=== PATIENT | male | born 1945 | race Caucasian/White ===

== ENCOUNTER → 2016-10-20 | Outpatient (CLI) | payer MEDICARE, OTHER ==
[~2016-10-20] MED LIST: ALFU1TAB10 PO; ASPI81 PO; ENAL5TAB98 PO; GLUCTAB PO; SIMV20 PO; THIA100T PO
[2016-10-20 08:59] LABS: BLOOD GAS BASE EXCESS -3.2 mmol/L (-2-2); BLOOD GAS CARBOXYHEMOGLOBIN 3.7 % (0-4); BLOOD GAS HCO3 21 mmol/L (22-26); BLOOD GAS METHEMOGLOBIN 0.9 % (0-2); BLOOD GAS O2 HGB SATURATION 87 % (90-100); BLOOD GAS OXYGEN CONTENT 16.8 Vol % (12.0-20.0); BLOOD GAS PCO2 37 mmHg (38-42); BLOOD GAS PO2 64 mmHg (61-120); BLOOD GAS TOTAL HGB 13.7 G/DL (12.0-16.0); CRITICAL VALUE YES; DRAW SITE LT BRACHIAL; NUMBER OF ARTERIAL PUNCTURES 1; OXYGEN DEVICE RA; STAT NO; TEMP CORR TO 98.6; ULNAR PULSE Y
--- NOTE | 2016-10-28 10:42 | RSPPFT ---
DATE OF PROCEDURE: 10/20/16 COMMENTS: Spirometry shows FVC of 3.8 at 89% of predicted, FEV1 of 2.1 at 75%, FEV1/FVC ratio is decreased. Flow is decreased at FEF 25, FEF 50, FEF 75 and FEF 25-75. There is no response after bronchodilator treatment. Lung volumes show residual volume is increased. TLC is normal. Diffusion capacity is mildly decreased. Flow volume loop indicates an obstructive pattern. Blood gases show pH of 7.38, PCO2 of 36, PO2 of 63, BiCarb of 21 and O2 Saturation at 87%. IMPRESSION: 1. Mild obstructive lung disease. 2. No response after bronchodilator treatment. 3. Lung volumes show hyperinflation. 4. Normal diffusion capacity. 5. Blood gases show hypoxia on room air.
== END ==
LOC: PHRSP 08:22
PROVIDERS: ATTEND Specialist
DX: J44.9 Chronic obstructive pulmonary disease, unspecified (principal)
CPT/HCPCS: 36600; 82805; 94060; 94726; 94729

== ENCOUNTER → 2016-11-17 | Day surgery (SDC) | payer MEDICARE, OTHER ==
[~2016-11-17] MED LIST changes: +ACETAMINOPHEN 1000 MG/100 ML VIAL IV ONE; +BALANCED SALT SOLN OPHT IRRIG 15 ML BTL ONE; +BUPIVACAINE/EPINEPHRINE 0.25% 50 ML VIAL ONE; +LACTATED RINGER'S 1000 ML INJ 1,000 ML ONE; +LIDOCAINE 1%/EPINEPHrine 1:100,000 SOLN 30 ML VIAL OTHER ONE; +ONDANSETRON HCL 4 MG/2 ML VIAL IV PUSH ONE; +PROPOFOL 200 MG/20 ML AMP IV ONE; +ceFAZolin INJ 1,000 MG VIAL ONE
--- NOTE | 2016-11-17 11:01 | TN ---
cc: RUEL GRAY M.D. 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 PROCEDURE 1)A wide local excision of squamous cell carcinoma in situ resulting in a primary defect of 3 x 3 cm. This required a lower lid lateral canthopexy and a tissue rearrangement reconstruction for a secondary defect of 7 x 4 cm. 2) Baso squamous cell lesion of the neck primary defect 3.5 x 1-1/2. This required an intermediate repair of 5 cm. SURGEON Ruel Gray MD ANESTHESIA LMA general, I also utilized a total of 20 cc of 1% lidocaine with epinephrine. ESTIMATED BLOOD LOSS Minimal COMPLICATIONS None PROCEDURE He was properly consented, marked, properly anesthetized. The skin sterilized with Microcyn and sterile draping applied. Excision of this lesion located on the left lower eyelid was properly carried out and sent for frozen section with a twelve o'clock suture. Per Dr. Calixto Mehta who read this as negative. This left a defect of 3 x 3 cm. Due to significant lower eyelid canthal laxity, a lower lid canthopexy was done through the same incision and anchored into the inner aspect of the superolateral orbital periosteum where the canthal ligament was tucked utilizing 5-0 clear nylon. A Mustarde flap was properly elevated and rotated into the defect for a secondary defect of 7 x 4 cm. This properly inset utilizing 5-0 Monocryl suture and 5-0 fast-absorbing gut. The lesion on neck left was properly ellipsed along the risk intention lines there was a defect of 3-1/2 x 1-1/2 centimeter. This was properly closed on an intermediate repair totaling 5 cm utilizing 3-0 Monocryl suture in the dermis and subcu. Antibiotic ointment applied. Absorbent dressing thereafter. Overall, the patient tolerated the procedure well. He was awakened and extubated in the operating room, transferred back to the postanesthesia care unit in stable condition. No complications appreciated and the patient tolerated the procedure fairly well. MD AMNA Julian/MONET /10:41 AM /10:55 AM MTDSandra
== END | disposition home or self-care (01) ==
LOC: ESDC 08:02
PROVIDERS: ATTEND Plastic Surgery
DX: D04.12 Carcinoma in situ of skin of left eyelid, including canthus (principal); C44.42 Squamous cell carcinoma of skin of scalp and neck
CPT/HCPCS: 00300; 11624; 12042; 14061; 21282; 88305; 88331; J0131; J0690; J2405; J3010; J7120

== ENCOUNTER 2017-06-21 08:33 | Day surgery (SDC) | payer MEDICARE, OTHER ==
--- NOTE | 2017-05-28 15:54 | MH ---
cc: CLOVIS MCHUGH DATE OF ADMISSION 06/21/2017 CHIEF COMPLAINT The patient to come for CT-guided left upper lobe lung biopsy. HISTORY OF THE PRESENT ILLNESS Mr. Crooks is a 72-year-old white male with a long-standing history of smoking and he continues to smoke. He was found to have left upper lobe density. He has had a PET scan done on May 19, 2017 which shows he has a new 2 cm mass in the left apical pleural parenchymal region, densely hypermetabolic and highly suspicious for malignancy. He also has low level medial and mediastinal lymph node without uptake. No evidence of distant metastatic disease. He continues to smoke. Has no fever or chills. No heart attack. PAST MEDICAL HISTORY His past medical history is significant for: 1. A history of chronic obstructive pulmonary disease and emphysema. 2. Hypertension. 3. Hyperlipidemia. 4. History of cancer of the bladder. MEDICATIONS He is on: 1. Anoro Ellipta. 2. Aspirin 81 milligrams. 3. Simvastatin 20 milligrams. 5. Enalapril 2.5 milligrams daily. 6. Uroxatral. ALLERGIES NO KNOWN DRUG ALLERGIES. SOCIAL HISTORY He has 55 years of smoking more than one pack per day and continues to smoke. He takes 2-3 drinks a day. No drug use. He is retired, he worked in the . FAMILY HISTORY He is . Lives alone. He has two children. He has two brothers and two sisters. Mother of old age. Father at age 41 with coronary thrombosis. REVIEW OF SYSTEMS Denies any weight loss or fatigue. No fever or chills. No hemoptysis. PHYSICAL EXAMINATION GENERAL: Well built and well-nourished male not in any acute distress. VITAL SIGNS: Blood pressure 124/70, heart rate 82, respirations 16, oxygen saturation 98%. HEENT: Examination unremarkable. NECK: Supple. JVP not raised. CHEST: Air entry equal bilaterally. Has hyperresonant chest. Few rhonchi. CARDIOVASCULAR: S1, S2 normal. ABDOMEN: Soft, nontender, nondistended. Bowel sounds are present. EXTREMITIES: No edema. IMPRESSION 1. Left apical 2 cm mass , hypermetabolic activity highly suspicion for malignancy. 2. Chronic obstructive pulmonary disease and emphysema. 3. Pleural parenchymal scarring. 4. Nicotine use. 5. Hypertension. PLAN I discussed with the patient he will need a CT-guided biopsy of the lung. I explained the procedure including complications of anesthesia, pneumothorax requiring chest tube and possible we will get a non diagnostic biopsy. He has significant emphysema and is high risk for pneumothorax which he understands well. I will schedule him for CT-guided biopsy at [facility]. MD ELIU Gasca/SPENCER /9:06 PM /3:44 PM CAMILA
[~2017-06-21] VITALS: Ht 177.8 cm; Wt 59.1 kg
[2017-06-21] VITALS (8 sets, daily range): BP systolic 104–155; BP diastolic 60–80; PULSE 59–72; RESP 20; TEMP 97.7–97.8; O2SAT 92–98
[~2017-06-21 08:33] MED LIST changes: -ACETAMINOPHEN 1000 MG/100 ML VIAL IV ONE; -BALANCED SALT SOLN OPHT IRRIG 15 ML BTL ONE; -BUPIVACAINE/EPINEPHRINE 0.25% 50 ML VIAL ONE; -LACTATED RINGER'S 1000 ML INJ 1,000 ML ONE; -LIDOCAINE 1%/EPINEPHrine 1:100,000 SOLN 30 ML VIAL OTHER ONE; -ONDANSETRON HCL 4 MG/2 ML VIAL IV PUSH ONE; -PROPOFOL 200 MG/20 ML AMP IV ONE; -ceFAZolin INJ 1,000 MG VIAL ONE
[2017-06-21] MEDS ORDERED: SODIUM CHLOR 0.9% 1000 ML IV SCH (09:00)
[2017-06-21] MEDS ORDERED: CYAN2500 PO (09:03)
[2017-06-21] MEDS ORDERED: ASPI81CH6 CHEW (09:03)
[2017-06-21] MEDS ORDERED: SIMV20TA PO (09:03)
[2017-06-21] MEDS ORDERED: ENAL2.5T PO (09:03)
[2017-06-21] MEDS ORDERED: METF500T PO (09:03)
[2017-06-21] MEDS ORDERED: FOLI400T PO (09:03)
[2017-06-21] MEDS ORDERED: ALFU1TAB14 PO (09:03)
[2017-06-21] MEDS ORDERED: VITA100T54 PO (09:03)
[2017-06-21] MEDS ORDERED: MIDAZOLAM HCL 2 MG/2 ML VIAL ONE (10:41)
[2017-06-21] MEDS ORDERED: LIDOCAINE HCL 1% 20 ML VIAL ONE (10:54)
--- NOTE | 2017-06-21 11:51 | PD.RAD ---
Post CT Procedure Prog Note Pre Procedure Diagnosis: (1) Mass of left lung Post Procedure Diagnosis: (1) Mass of left lung Procedure Date: Jun 21, 2017 Supervising Radiologist: Porfirio Morrow Anesthesia: Local, Conscious Sedation Plan of Activity Patient to Unit: ROPU Patient Condition: Good See PACS Report for procedural detail/treatment Biopsy Imaging Guidance: CT Side: Left Biopsy Procedure: Lung Specimen: Core Biopsy Porfirio Morrow MD Jun 21, 2017 11:51
[2017-06-21] MEDS ORDERED: oxyCODONE/ACETAMINOPHEN 5 MG/325 MG TAB PO PRN (12:00)
--- NOTE | 2017-06-21 12:35 | RADRPT ---
EXAM DATE/TIME: 06/21/2017 11:56 [facility] COMPARISON: No previous studies available for comparison. INDICATIONS : Post left lung needle biopsy MEDICAL HISTORY : None. SURGICAL HISTORY : None. ENCOUNTER: Initial ACUITY: 1 day PAIN SCORE: 0/10 LOCATION: Left chest FINDINGS: A single frontal expiratory view of the chest was performed. The lungs are symmetrically aerated and clear. No evidence of pneumothorax. Mediastinal structures are in the midline. The cardio-mediastinal contours and bronchopulmonary markings are unremarkable for an expiratory exam . Osseous structures are intact. CONCLUSION: Negative for left pneumothorax following biopsy. Igor Holder MD FACR on June 21, 2017 at 12:32 Board Certified Radiologist. This report was verified electronically.
--- NOTE | 2017-06-21 14:03 | RADRPT ---
EXAM DATE/TIME: 06/21/2017 11:14 [facility] COMPARISON: CHEST EXPIRATION ONLY, June 21, 2017, 11:56. INDICATIONS : Left lung mass. SEDATION TIME: 30 minutes BIOPSY SITE: Left MEDICATION(S): 1.) 4 mg midazolam (Versed) IV 2.) 200 mcg fentanyl (Sublimaze) IV DEVICE(S): 1.) 20 gauge Temno core biopsy needle MEDICAL HISTORY : Emphysema. Hypertension. Bladder cancer. SURGICAL HISTORY : None. ENCOUNTER: Initial ACUITY: 1 day PAIN SCORE: 0/10 LOCATION: Left chest A total of two core specimen(s) were obtained and sent to the laboratory for pathologic evaluation. PROCEDURE: 1. CT guided lung biopsy. 2. Conscious sedation with continuous EKG and oximetry monitoring. 3. EKG and oximetry remained stable throughout the procedure. Prior to the procedure informed consent was obtained. Any appropriate prior imaging studies were rev iewed. Using automated exposure control and adjustment of the mA and/or kV according to patient size, radiation dose was kept as low as reasonably achievable to obtain optimal diagnostic quality images. DICOM format image data is available electronically for review and comparison. The site was prepped in a sterile fashion. Full sterile technique was used, including cap, mask, purvi rile gloves and gown and a large sterile sheet. Hand hygiene and 2% chlorhexidine and/or betadine/al cohol prep was utilized per protocol for cutaneous antisepsis. The skin and subcutaneous tissues wer e infiltrated with local anesthetic solution. With CT guidance the previously identified target was localized. Biopsy was performed using the presc ribed needle as above. Adequate hemostasis was obtained with compression at the puncture site. Follow-up CT scan reveals no pneumothorax. Conscious sedation was performed with the prescribed dosages and duration as above in the presence of an independent trained radiology nurse to assist in the monitoring of the patient. EKG and oximetry remained stable throughout the procedure. The patient tolerated the procedure well and there were no complications. The patient was sent to Radiology Outpatient Unit in stable condition. CONCLUSION: Uncomplicated CT guided biopsy left apical lung mass. Porfirio Morrow MD on June 21, 2017 at 14:00 Board Certified Radiologist. This report was verified electronically.
== END 2017-06-21 15:49 | disposition home or self-care (01) ==
LOC: HRAD 08:33 → HRIP 08:37 → HRAD 15:49
PROVIDERS: ATTEND Specialist
DX: R22.2 Localized swelling, mass and lump, trunk (principal); J43.9 Emphysema, unspecified; I10 Essential (primary) hypertension; E78.5 Hyperlipidemia, unspecified; Z79.82 Long term (current) use of aspirin; Z87.891 Personal history of nicotine dependence
CPT/HCPCS: 32405; 71045; 77012; 88305; J2250; J3010; J7030

== ENCOUNTER 2017-09-15 07:52 | Day surgery (SDC) | payer MEDICARE, OTHER ==
--- NOTE | 2017-09-06 15:28 | MH ---
cc: Cameron Trinidad MD DATE OF ADMISSION: 09/15/2017 CHIEF COMPLAINT: The patient will come for CT-guided left lung biopsy. HISTORY OF PRESENT ILLNESS: Mr. Crooks is a 72-year-old with a long-standing history of smoking and continues to smoke. He has a left lung density. He had a CT-guided biopsy done which was nondiagnostic. He had a repeat CT scan of the chest done on 08/23 which shows he has an enlarging left apical mass highly suspicious for malignancy. PAST MEDICAL HISTORY: Significant for history of left lung density, COPD, nicotine use, diabetes mellitus, history of cancer of the bladder, hyperlipidemia and hypertension. MEDICATIONS: He takes Anoro Ellipta, aspirin 81 mg a day, simvastatin 20 mg a day, enalapril 2.5 mg a day, Uroxatral once a day. ALLERGIES: NO KNOWN DRUG ALLERGIES. SOCIAL HISTORY: He has a 38-cpbu-ldrd history of smoking 1 pack a day and continues to smoke. He takes 2-3 drinks a day. No drug use. He is retired; he worked in the . FAMILY HISTORY: He is , lives alone. He has 2 children. He has 2 brothers and 2 sisters. Mother of old age. Father at age 41 with coronary thrombosis. REVIEW OF SYSTEMS: He denies any weight loss. No fevers or chills. No hemoptysis. PHYSICAL EXAMINATION: GENERAL: Well-developed, well-nourished male, not in any acute distress. VITAL SIGNS: Blood pressure 124/70, heart rate 61, respirations 18, oxygen saturation 99%. HEENT: Examination unremarkable. NECK: Supple. JVP not raised. CHEST: Lungs clear bilaterally, no rhonchi. CARDIOVASCULAR: S1, S2 normal. ABDOMEN: Benign. EXTREMITIES: No edema. IMPRESSION: 1. Enlarging left upper lobe density concerning for malignancy. He did have a biopsy of the lung done which was nondiagnostic. 2. Chronic obstructive pulmonary disease. 3. Nicotine use. 4. Diabetes mellitus. 5. Hypertension. PLAN: I discussed with the patient and advised him to have a CT-guided lung biopsy again. If the biopsy is still nondiagnostic, he may need resection. I explained the procedure and the complications including complications of anesthesia, pneumothorax requiring chest tube, bleeding complications, injury to the blood vessels and lungs, ____ hypoxia, and possibility of nondiagnostic biopsy. He understands well and wants to proceed with it. He will be scheduled for CT-guided biopsy at [facility]. MD ELIU Gasca/MEHRDAD , 11:20 PM , 12:16 AM
[~2017-09-15] VITALS: Ht 177.8 cm; Wt 59.1 kg
[2017-09-15] VITALS (9 sets, daily range): BP systolic 110–151; BP diastolic 59–81; PULSE 63–74; RESP 18–20; TEMP 97.4–97.7; O2SAT 91–97
[~2017-09-15 07:52] MED LIST changes: -ALFU1TAB10 PO; +ALFU1TAB14 PO; -ASPI81 PO; +ASPI81CH6 CHEW; +CYAN2500 PO; +ENAL2.5T PO; -ENAL5TAB98 PO; +FOLI400T PO; -GLUCTAB PO; +METF500T PO; -SIMV20 PO; +SIMV20TA PO; -THIA100T PO; +VITA100T54 PO
[2017-09-15] MEDS ORDERED: SODIUM CHLOR 0.9% 1000 ML IV SCH (08:45)
[2017-09-15] MEDS ORDERED: SODIUM CHLORIDE 2 ML FLUSH PRN IV FLUSH (08:45)
[2017-09-15] MEDS ORDERED: SODIUM CHLORIDE 2 ML FLUSH BID IV FLUSH SCH (09:00)
[2017-09-15] MEDS ORDERED: fentaNYL CITRATE 250 MCG/5 ML AMP ONE (09:50)
[2017-09-15] MEDS ORDERED: MIDAZOLAM HCL 5 MG/5 ML VIAL ONE (09:50)
--- NOTE | 2017-09-15 10:58 | PD.RAD ---
Post CT Procedure Prog Note Pre Procedure Diagnosis: (1) Emphysema of lung (2) Mass of left lung Post Procedure Diagnosis: (1) Emphysema of lung (2) Mass of left lung Procedure Date: Sep 15, 2017 Supervising Radiologist: Daniel Lira Anesthesia: Local, Analgesia, Conscious Sedation Plan of Activity Patient to Unit: ROPU Patient Condition: Good See PACS Report for procedural detail/treatment Biopsy Imaging Guidance: CT Side: Left Biopsy Procedure: Lung Specimen: Core Biopsy (x 2) Findings: Post bx perilesion hemorrhage Daniel Lira MD Sep 15, 2017 10:58
[2017-09-15] MEDS ORDERED: oxyCODONE/ACETAMINOPHEN 5 MG/325 MG TAB PO PRN (11:00)
--- NOTE | 2017-09-15 12:21 | RADRPT ---
EXAM DATE/TIME: 09/15/2017 11:56 [facility] COMPARISON: CT NEEDLE BIOPSY LUNG, LEFT, June 21, 2017, 11:14. CHEST EXPIRATION ONLY, June 21, 2017, 11:56 . INDICATIONS : Evaluate for pneumothorax. Post left lung biopsy. MEDICAL HISTORY : Hypertension. Hypercholesterolemia. Diabetes. Skin cancer. Bladder cancer. SURGICAL HISTORY : None. ENCOUNTER: Subsequent ACUITY: 1 day PAIN SCORE: 0/10 LOCATION: Bilateral chest FINDINGS: A single frontal expiratory view of the chest was performed. No evidence for pneumothorax following b iopsy of mass in the left lung apex. Redemonstration of left apical emphysematous change and soft tis alem prominence. The cardio-mediastinal contours and bronchopulmonary markings are unremarkable for an expiratory exam. Osseous structures are intact. CONCLUSION: 1. No significant pneumothorax following left lung apical mass biopsy. Marcial Reddy MD on September 15, 2017 at 12:17 Board Certified Radiologist. This report was verified electronically.
--- NOTE | 2017-09-15 12:26 | RADRPT ---
EXAM DATE/TIME: 09/15/2017 10:15 [facility] COMPARISON: CT NEEDLE BIOPSY LUNG, LEFT, June 21, 2017, 11:14. INDICATIONS : Left lung mass. SEDATION TIME: 30 minutes BIOPSY SITE: Right MEDICATION(S): 1.) 4 mg midazolam (Versed) IV 2.) 200 mcg fentanyl (Sublimaze) IV DEVICE(S): 1.) 20 gauge Temno core biopsy needle MEDICAL HISTORY : None. SURGICAL HISTORY : None. ENCOUNTER: Initial ACUITY: 1 day PAIN SCORE: 0/10 LOCATION: Right chest A total of two core specimen(s) were obtained and sent to the laboratory for pathologic evaluation. PROCEDURE: 1. CT guided lung biopsy. 2. Conscious sedation with continuous EKG and oximetry monitoring. 3. EKG and oximetry remained stable throughout the procedure. Prior to the procedure informed consent was obtained. Any appropriate prior imaging studies were rev iewed. Using automated exposure control and adjustment of the mA and/or kV according to patient size, radiation dose was kept as low as reasonably achievable to obtain optimal diagnostic quality images. DICOM format image data is available electronically for review and comparison. The site was prepped in a sterile fashion. Full sterile technique was used, including cap, mask, purvi rile gloves and gown and a large sterile sheet. Hand hygiene and 2% chlorhexidine and/or betadine/al cohol prep was utilized per protocol for cutaneous antisepsis. The skin and subcutaneous tissues wer e infiltrated with local anesthetic solution. With CT guidance the previously identified target was localized. Biopsy was performed using the presc ribed needle as above. Adequate hemostasis was obtained with compression at the puncture site. Follow-up CT scan reveals no pneumothorax. Severe emphysematous changes in the apex, the region of bi opsy. Some perilesional hemorrhage identified with blood identified in one of the adjacent blebs. Conscious sedation was performed with the prescribed dosages and duration as above in the presence of an independent trained radiology nurse to assist in the monitoring of the patient. EKG and oximetry remained stable throughout the procedure. The patient tolerated the procedure well and there were no complications. The patient was sent to Radiology Outpatient Unit in stable condition. CONCLUSION: Uncomplicated CT guided biopsy. Some perilesional hemorrhage post biopsy. No immedia te pneumothorax despite severe regional emphysematous changes. Daniel Lira MD on September 15, 2017 at 12:20 Board Certified Radiologist. This report was verified electronically.
== END 2017-09-15 14:10 | disposition home or self-care (01) ==
LOC: HRAD 07:52 → HRIP 07:56 → HRAD 14:10
PROVIDERS: ATTEND Specialist
DX: R91.8 Other nonspecific abnormal finding of lung field (principal); J43.9 Emphysema, unspecified; I10 Essential (primary) hypertension; E11.9 Type 2 diabetes mellitus without complications; E78.00 Pure hypercholesterolemia, unspecified; E78.5 Hyperlipidemia, unspecified; Z72.0 Tobacco use; Z79.82 Long term (current) use of aspirin; Z85.51 Personal history of malignant neoplasm of bladder; Z85.828 Personal history of other malignant neoplasm of skin; Z79.84 Long term (current) use of oral hypoglycemic drugs
CPT/HCPCS: 32405; 71045; 77012; 88305; 88333; 99152; 99153; J2250; J3010; J7030